=== PATIENT | male | born 1990 ===

== ENCOUNTER 2024-03-25 16:30 | Emergency (ER) | payer MEDICAID ==
[~2024-03-25] VITALS: Ht 188 cm; Wt 118.0 kg
[2024-03-25 16:59] VITALS: BP 145/92; PULSE 124; RESP 18; TEMP 98.7; O2SAT 96
== END 2024-03-25 18:00 | disposition left against medical advice (07) ==
LOC: EMS 16:30
DX: R00.2 Palpitations (principal); Z53.21 Procedure and treatment not carried out due to patient leaving prior to being seen by health care provider